=== PATIENT | female | born 1960 | race Caucasian/White ===

== ENCOUNTER 2022-03-04 07:30 | Outpatient (CLI) | payer OTHER, SELFPAY ==
--- NOTE | 2022-03-04 07:51 | MR_ITS ---
WS: [id number] MRI HEAD WITH CONTRAST WITH ATTENTION TO THE INTERNAL AUDITORY CANALS TECHNIQUE: Sagittal T1, T2 axial, T2 axial flair, axial susceptibility weighted imaging, axial diffus ion weighted images, and coronal T2 images were obtained. Pre and post T1 axial and post T1 coronal i mages. ADC and FSPGR images. Post gadolinium images with attention to the internal auditory canals. A xial fiesta imaging. CLINICAL INFORMATION: MIXED CONDUCTIVE SENSORINEURAL HEARING LOSS,BILATERAL COMPARISON: None. FINDINGS: No evidence of restricted diffusion to suggest acute ischemia. Ventricular system and basal cisterns are patent. Mild small vessel changes. Moderate parenchymal volume loss. Normal vascular flow voids a t the skull base. No extra axial fluid collections. No evidence of mass or mass effect. Paranasal sin uses and mastoid air cells well aerated. Incidental LEFT middle cranial fossa arachnoid cyst measurin g 1.6 x 1.7 CM. No hemosiderin on susceptibly weighted images. Normal posterior fossa. Normal vascular flow voids at the skull base. Paranasal sinuses and mastoid air cells well aerated. Proximal 7th and 8th cranial nerves are normal in appearance. Normal trigeminal nerve root entry zone s. No evidence of enhancing IAC or CP angle mass. No abnormal intracranial enhancement. Normal visual ized dural venous sinuses. MR/MR iac's wo/w con* [id number] IMPRESSION: 1. No evidence of restricted diffusion to suggest acute ischemia. 2. Mild small vessel changes. Moderate parenchymal volume loss. 3. 7th and 8th cranial nerves are normal in appearance. No evidence of enhanci ng IAC or CP angle mass. 4. No hemosiderin on susceptibly weighted images. 5. Incidental small arachnoid cyst LEFT middle cranial fossa. 6. No other significant findings.
[2022-03-04] MEDS: gadobenate dimeglumine 20 mL vial IV (09:00)
== END 2022-03-04 07:31 | disposition home or self-care (01) ==
PROVIDERS: Visit Provider Specialist
DX: H93.13 Tinnitus, bilateral (principal)
CPT/HCPCS: 70553